=== PATIENT | female | born 1955 | race Caucasian/White ===

== ENCOUNTER → 2018-07-31 | Outpatient (CLI) | payer OTHER ==
[~2018-07-31] VITALS: Ht 162.6 cm; Wt 96.4 kg
[~2018-07-31] MED LIST: 0.9% SODIUM CHLORIDE 10 ML SYRINGE IVP PRN; ASPI-1182 PO; IOVERSOL 350 MG/ML 150 ML VIAL ONE; LISI-660 PO; METF-960 PO; METO25 PO; METOPROLOL TARTRATE 5 MG/5 ML VIAL ONE; NITROGLYCERIN 400 MCG/SUBLINGUAL SPRAY 4.9 GM BOTTLE SL ONE; PIOG30TA10 PO; SIMV-260 PO; SODIUM CHLORIDE 0.9% 100 ML ONE
[2018-07-31 08:03] LABS: ANION GAP 13 mmol/L (8-16); CALCIUM, TOTAL 9.2 mg/dL (8.8-10.5); CARBON DIOXIDE 26 mmol/L (22-29); CHLORIDE 108 mmol/L (98-107); CREATININE 0.91 mg/dL (0.60-1.30); GLOMERULAR FILTR. RATE CALC > 60 mL/min (>60); GLUCOSE,RANDOM 120 mg/dL (70-110); POTASSIUM 4.1 mmol/L (3.5-5.1); SODIUM SERUM 147 mmol/L (136-145); UREA NITROGEN, BLOOD 27 mg/dL (7-18)
== END | disposition home or self-care (01) ==
LOC: RADMN 06:50
PROVIDERS: ATTEND Internal Medicine Cardiovascular Disease
DX: I25.10 Atherosclerotic heart disease of native coronary artery without angina pectoris (principal)
CPT/HCPCS: 36415; 75574; 80048; 93005; J7050; Q9967; J3490